=== PATIENT | female | born 1970 | race Two or more races ===

== ENCOUNTER 2024-02-07 16:45 | Emergency (ER) | payer OTHER ==
[~2024-02-07] VITALS: Ht 172.7 cm; Wt 72.6 kg
[2024-02-07] MEDS ORDERED: METOPROLOL SUCC25 MG (17:41)
[2024-02-07] MEDS ORDERED: LOSARTAN POTASS25 MG PO (17:41)
[2024-02-07] MEDS ORDERED: 0.9 % SODIUM CHLORIDE 1,000 ML IV ONE (18:30)
[2024-02-07] MEDS ORDERED: KETOROLAC TROMETHAMINE 30 MG VIAL IV ONE (18:30)
[2024-02-07] MEDS ORDERED: KETOROLAC TROMETHAMINE 30 MG VIAL ONE (18:38)
[2024-02-07 19:47] LABS: PH,URINE 5.5 (5.0-8.0); URINE APPEARANCE Clear; URINE BILIRRUBIN Negative (NEGATIVE); URINE BLOOD Negative; URINE COLOR Yellow; URINE GLUCOSE Negative (NEGATIVE); URINE KETONE Trace (NEGATIVE); URINE LEUKOCYTE Negative; URINE NITRATE Negative; URINE PROTEIN Negative (NEGATIVE); URINE UROBILINOGEN 0.2 E.U./dl
[2024-02-07 19:50] LABS: URINE BACTERIA 215.4 uL (0.0-1933); URINE EPITHELIAL CELLS 14.5 uL (0.0-38.8); URINE RBC 16.4 uL (0.0-20.8); URINE WBC 5.2 uL (0.0-23.2)
[2024-02-07 19:53] LABS: HEMATOCRIT 39.6 % (36.0-45.00); HEMOGLOBIN 12.8 g/dL (12.0-15.00); MEAN CELL VOLUME 88.9 fL (80.00-100.00); MEAN CORPUSCULAR HEMOGLOBIN 28.7 pg (27.00-32.0); MEAN CORPUSCULAR HGB CONC 32.2 g/dl (32.0-36.0); PLATELET COUNT 289 K/uL (150-450); RED BLOOD COUNT 4.45 M/uL (4.00-6.00); RED CELL DISTRIBUTION WIDTH 14.1 % (11.5-14.5)
[2024-02-07 20:16] LABS: CALCIUM 9.4 mg/dL (8.5-10.1); CREATININE SERUM 0.77 mg/dL (0.55-1.02); GFR 77.83; POTASSIUM 4.27 mEq/L (3.5-5.1)
[2024-02-07] MEDS ORDERED: TRAMADOL HCL 50 MG TABLET PO ONE ×2 (22:45)
== END 2024-02-07 23:08 | disposition home or self-care (01) ==
LOC: ER 16:47
PROVIDERS: General Practice
DX: N83.8 Other noninflammatory disorders of ovary, fallopian tube and broad ligament (principal); I10 Essential (primary) hypertension

== ENCOUNTER 2024-02-18 10:34 | Inpatient (IN) | payer OTHER ==
[~2024-02-18] VITALS: Ht 172.7 cm; Wt 74.8 kg
[~2024-02-18 10:34] MED LIST: LOSARTAN POTASS25 MG PO; METOPROLOL SUCC25 MG
[2024-02-18] MEDS ORDERED: TOPROL XL50 M1 (10:53)
[2024-02-18] MEDS ORDERED: COZAAR25 MG PO (10:53)
[2024-02-18] MEDS ORDERED: CIPRO500 MG (10:54)
[2024-02-18] MEDS ORDERED: RINGERS SOLUTION,LACTATED 1,000 ML IV STA (13:52)
[2024-02-18 14:21] LABS: HEMATOCRIT 37.2 % (36.0-45.00); HEMOGLOBIN 12.3 g/dL (12.0-15.00); MEAN CELL VOLUME 86.5 fL (80.00-100.00); MEAN CORPUSCULAR HEMOGLOBIN 28.7 pg (27.00-32.0); MEAN CORPUSCULAR HGB CONC 33.2 g/dl (32.0-36.0); PLATELET COUNT 302 K/uL (150-450); RED CELL DISTRIBUTION WIDTH 14.4 % (11.5-14.5)
[2024-02-18 14:43] LABS: ALBUMIN 3.2 gm/dL (3.4-5.0); ALKALINE PHOSPHATASE 59 U/L (50-136); ALT/SGPT 20 U/L (12-78); ANION GAP 8 (10.0-20.0); AST/SGOT 12 U/L (15-37); BILIRUBIN TOTAL 0.25 mg/dL (0.3-1.2); BILIRUBIN,CONJUGATED < 0.10 mg/dL (0.0-0.2); BILIRUBIN,UNCONJUGATED 0.15 mg/dL (0.0-0.6); BLOOD UREA NITROGEN 8 mg/dL (7-18); BUN CREA RATIO 10 (7.0-25.0); CALCIUM 8.7 mg/dL (8.5-10.1); CARBON DIOXIDE 29 mEq/L (21-32); CHLORIDE 105 mmol/L (98-107); CREATININE SERUM 0.81 mg/dL (0.55-1.02); GFR 73.41; GLUCOSE FASTING 112 mg/dL (65-100); OSMOLALITY SERUM 275 MOSM/KG (275-295); SODIUM 138 mmol/L (136-145); TOTAL PROTEIN 7.8 gm/dL (6.4-8.2)
[2024-02-18 14:47] LABS: INR 1.08; PARTIAL THROMBOPLASTIN TIME 32.8 SECONDS (22.0-34.0); PROTHROMBIN TIME 11.7 SECONDS (9.0-11.5)
[2024-02-18] MEDS ORDERED: MORPHINE SULFATE 4 MG/ML VIAL IV STA (16:13)
[2024-02-18 17:40] VITALS: BP 123/80; O2SAT 100
[2024-02-18 18:02] LABS: URINE APPEARANCE Cloudy; URINE BILIRRUBIN Negative (NEGATIVE); URINE BLOOD NHT; URINE COLOR Yellow; URINE GLUCOSE Negative (NEGATIVE); URINE LEUKOCYTE Small; URINE NITRATE Negative; URINE PROTEIN Trace (NEGATIVE); URINE UROBILINOGEN 0.2 E.U./dl
[2024-02-18 18:06] LABS: URINE EPITHELIAL CELLS 54.4 uL (0.0-38.8); URINE RBC 85.9 uL (0.0-20.8); URINE WBC 123.3 uL (0.0-23.2)
[2024-02-18 18:25] LABS: URINE BACTERIA > 9821.5 uL (0.0-1933); URINE CAST 0.76 uL (0.0-1.40); URINE KETONE 40 (NEGATIVE)
[2024-02-18 18:26] LABS: URINE MUCUS SCANT
[2024-02-18] MEDS ORDERED: PIPERACILLIN/TAZOBACTAM SODIUM 3.375 GM in DEXTROSE 5 % IN WATER 100 ML IV SCH (18:29)
[2024-02-18] MEDS ORDERED: FAMOTIDINE/PF 20 MG in 0.9 % SODIUM CHLORIDE 8 ML IV PUSH SCH (18:29)
[2024-02-18] MEDS ORDERED: ONDANSETRON HCL 4 MG in 0.9 % SODIUM CHLORIDE 50 ML IV PRN (18:30)
[2024-02-18] MEDS ORDERED: ACETAMINOPHEN 500 MG GEL..CAP PO PRN (18:30)
[2024-02-18] MEDS ORDERED: 0.9 % SODIUM CHLORIDE 1,000 ML IV SCH (18:30)
[2024-02-18] MEDS ORDERED: MEPERIDINE HCL/PF 25 MG/ML VIAL IM PRN (18:30)
[2024-02-18] MEDS ORDERED: FAMOTIDINE/PF 20 MG/2 ML VIAL ONE (18:45)
[2024-02-18] MEDS ORDERED: PIPERACILLIN/TAZOBACTAM SODIUM 3.375 GM VIAL IV ONE (18:45)
[2024-02-18] MEDS ORDERED: SIMETHICONE 125 MG CAPSULE PO ONE (18:45)
[2024-02-18 19:30] LABS: C-REACTIVE PROTEIN 14.2 MG/DL (0.00-0.29)
[2024-02-18 21:00] VITALS: BP 140/87; O2SAT 96
[2024-02-19 01:56] VITALS: BP 119/78; O2SAT 95
[2024-02-19] MEDS ORDERED: METOPROLOL SUCCINATE 50 MG TAB.SR.24H PO SCH (09:00)
[2024-02-19] MEDS ORDERED: LOSARTAN POTASSIUM 25 MG TABLET PO SCH (09:00)
[2024-02-19] MEDS ORDERED: ENOXAPARIN SODIUM 40 MG/0.4 ML SYRINGE SUBCUTANEO SCH (09:00)
[2024-02-19 09:22] VITALS: BP 127/86; O2SAT 96
[2024-02-19 19:17] VITALS: BP 136/85; O2SAT 97
[2024-02-20 02:21] VITALS: BP 135/84; O2SAT 96
[2024-02-20 06:50] LABS: HEMATOCRIT 34.6 % (36.0-45.00); HEMOGLOBIN 11.7 g/dL (12.0-15.00); MEAN CELL VOLUME 86.6 fL (80.00-100.00); MEAN CORPUSCULAR HEMOGLOBIN 29.3 pg (27.00-32.0); MEAN CORPUSCULAR HGB CONC 33.8 g/dl (32.0-36.0); PLATELET COUNT 315 K/uL (150-450); RED CELL DISTRIBUTION WIDTH 14.2 % (11.5-14.5)
[2024-02-20 06:58] LABS: ALBUMIN 2.9 gm/dL (3.4-5.0); BILIRUBIN TOTAL 0.37 mg/dL (0.3-1.2); CALCIUM 8.4 mg/dL (8.5-10.1); CREATININE SERUM 0.76 mg/dL (0.55-1.02); GFR 79.01; GLOBULINA 3.5 G/DL (2.4-3.5); MAGNESIUM 2.4 mg/dL (1.8-2.4); PHOSPHOROUS 3.5 mg/dL (2.5-4.9); POTASSIUM 4.05 mEq/L (3.5-5.1); TOTAL PROTEIN 6.4 gm/dL (6.4-8.2)
[2024-02-20 06:59] LABS: C-REACTIVE PROTEIN 11.2 MG/DL (0.00-0.29)
[2024-02-20 08:54] VITALS: BP 138/83; O2SAT 97
[2024-02-20 17:37] VITALS: BP 135/85; O2SAT 97
[2024-02-21 01:48] VITALS: BP 115/68; O2SAT 97
[2024-02-21] MEDS ORDERED: FAMOTIDINE/PF 20 MG/2 ML VIAL ONE (08:23)
[2024-02-21 09:08] VITALS: BP 139/88; O2SAT 95
[2024-02-21 17:38] VITALS: BP 140/85; O2SAT 98
[2024-02-22 01:06] VITALS: BP 134/72; O2SAT 98
[2024-02-22] MEDS ORDERED: DEXTROSE 5%-WATER 100ML IV.SOLN ONE (03:07)
[2024-02-22 08:55] VITALS: BP 150/87; O2SAT 97
[2024-02-22 17:19] VITALS: BP 131/83; O2SAT 97
[2024-02-23 01:12] VITALS: BP 136/89; O2SAT 100
[2024-02-23 08:38] VITALS: BP 145/80; O2SAT 99
[2024-02-23] MEDS ORDERED: FAMOtidine 20 MG TABLET PO SCH (21:00)
== END 2024-02-23 15:27 | disposition home or self-care (01) | DRG 392 ==
LOC: ER 10:35 → MEDI 18:36
PROVIDERS: General Practice; Internal Medicine Infectious Disease; ADMIT Internal Medicine; ATTEND Internal Medicine
PROC: BW21YZZ Computerized Tomography (CT Scan) of Abdomen and Pelvis using Other Contrast (ICD-10-PCS; principal; 2024-02-20)
DX: K52.9 Noninfective gastroenteritis and colitis, unspecified (principal); I10 Essential (primary) hypertension; N73.9 Female pelvic inflammatory disease, unspecified

== ENCOUNTER 2025-04-26 09:38 | Emergency (ER) | payer OTHER ==
[~2025-04-26] VITALS: Ht 172.7 cm; Wt 74.8 kg
[~2025-04-26 09:38] MED LIST changes: +CIPRO500 MG; +COZAAR25 MG PO; +TOPROL XL50 M1
[2025-04-26] MEDS ORDERED: JARDIANCE10 MG PO (10:26)
[2025-04-26] MEDS ORDERED: KETOROLAC TROMETHAMINE 15 MG VIAL IM ONE (11:00)
[2025-04-26] MEDS ORDERED: ALBUTEROL SULFATE 3 ML/2.5 MG AMPUL.NEB IH ONE (11:00)
[2025-04-26] MEDS ORDERED: BENZONATATE 200 MG CAPSULE PO ONE (11:00)
[2025-04-26] MEDS ORDERED: GUAIFENESIN 100 MG/5 ML BLIST.PACK PO ONE (11:00)
[2025-04-26 15:03] LABS: COVID-19 AG NEGATIVE (NEGATIVE)
== END 2025-04-26 15:20 | disposition home or self-care (01) ==
LOC: ER 09:38
PROVIDERS: Emergency Medicine
DX: R05.8 Other specified cough (principal); I10 Essential (primary) hypertension; Z20.822 Contact with and (suspected) exposure to COVID-19; E11.9 Type 2 diabetes mellitus without complications; Z79.84 Long term (current) use of oral hypoglycemic drugs; K58.8 Other irritable bowel syndrome; R07.89 Other chest pain; J40 Bronchitis, not specified as acute or chronic